=== PATIENT | female | born 1995 | race African-American/Black ===

== ENCOUNTER 2017-02-13 19:59 | Emergency (ER) | payer SELFPAY ==
[~2017-02-13] VITALS: Ht 170.2 cm; Wt 48.0 kg
[~2017-02-13 19:59] MED LIST: ALPR.25 PO
[2017-02-13 20:02] VITALS: BP 138/81; PULSE 84; RESP 16; TEMP 97.8; O2SAT 100
[2017-02-13] MEDS ORDERED: SODIUM CHLORIDE 0.9% FLUSH 10 ML FLUSH IV FLUSH PRN (20:30)
--- NOTE | 2017-02-13 20:41 | PD ---
HPI Chief Complaint: Cold / Flu Symptoms Time Seen by Provider: 20:09 Travel History International Travel<30 days: No Contact w/Intl Traveler<30days: No Traveled to known affect area: No History of Present Illness HPI Patient comes in complaining of not feeling well over the past 2 weeks. Patient states she's had intermittent hot flashes and cold chills. Patient states over the past week she's had sinus congestion. Reports associated nausea with eating. Denies any vomiting. Denies any chest pain, shortness breath, cough, headache, loss change in bowel or bladder, fevers, abdominal pain , back pain, headaches, sore throat, weight loss, or neck pain. Patient reports she has irregular periods but has never seen anyone for this. Patient states that she started her period today which was normal other than having worse cramping pain than normal that made her feel dizzy. Patient denies doing anything for this prior to coming emergency department. Denies anything making symptoms better or worse. Patient states she is sexually active and denies any vaginal discharge prior to starting her menstrual cycle. [facility] Past Medical History Medical History: Denies Significant Hx ?: Unknown LMP: 01/16/17 : 0 Past Surgical History Surgical History: No Previous Surgery Social History Alcohol Use: Yes ("VERY RARELY") Tobacco Use: No Substance Use: Yes (RARELY WEED) Allergies-Medications (Allergen,Severity, Reaction): Coded Allergies: No Known Allergies (Unverified Adverse Reaction, Unknown, 02/13/17) Reported Meds & Prescriptions Reported Meds & Active Scripts Active No Active Prescriptions or Reported Medications Review of Systems Except as stated in HPI: all other systems reviewed are Neg Physical Exam Narrative GENERAL: Well-developed, well nourished, in no acute distress, and non-ill appearing. SKIN: Focused skin assessment warm and dry. HEAD: Atraumatic. Normocephalic. EYES: Pupils equal and round. EOMI. No scleral icterus. No injection or drainage. ENT: No nasal bleeding or discharge. Mucous membranes pink and moist. Tympanic membranes pearly cagle bilaterally. Posterior pharynx nonerythematous without exudate. Uvula is midline. NECK: Trachea midline. No cervical lymphadenopathy. Supple. No nuclear rigidity. CARDIOVASCULAR: Regular rate and rhythm. No murmur appreciated. RESPIRATORY: No accessory muscle use. No respiratory distress. Clear to auscultation. Breath sounds equal bilaterally. GASTROINTESTINAL: Abdomen soft, non-tender, nondistended, and no guarding. Hepatic and splenic margins not palpable. Normal bowel sounds 4. No pulsatile mass. GENITOURINARY: Normal external genitalia without lesions or erythema. Vaginal vault with blood, but not any other drainage or clots. Cervical os was closed with scant bloody drainage. No cervical motion tenderness. Uterus nontender and nonenlarged. Bilateral adnexa nontender without masses. Exam was performed presence of senior staff specialized employment Susanne at all times. MUSCULOSKELETAL: No obvious deformities. No clubbing. No cyanosis. No edema. Full range of motion. NEUROLOGICAL: Awake and alert. No obvious cranial nerve deficits. Motor grossly within normal limits. Normal speech. PSYCHIATRIC: Appropriate mood and affect; insight and judgment normal. Data Data Last Documented VS Vital Signs Date Time Temp Pulse Resp B/P (MAP) Pulse Ox O2 Delivery O2 Flow Rate FiO2 02/13/17 22:05 02/13/17 21:25 88 14 02/13/17 20:02 97.8 100 Room Air Orders Orders Complete Blood Count With Diff (02/13/17 20:24) Comprehensive Metabolic Panel (02/13/17 20:24) Lipase (02/13/17 20:24) Urinalysis - C+S If Indicated (02/13/17 20:24) Iv Access Insert/Monitor (02/13/17 20:24) Ecg Monitoring (02/13/17 20:24) Oximetry (02/13/17 20:24) Sodium Chloride 0.9% Flush (Ns Flush) (02/13/17 20:30) Ed Urine Pregnancytest Poc (02/13/17 20:24) Orthostatic Vital Signs (02/13/17 20:24) Influenzae A/B Antigen (02/13/17 20:24) Urine Culture (02/13/17 20:34) Gc And Chlamydia Pcr (02/13/17 21:20) Wet Prep Profile (02/13/17 21:20) Ed Discharge Order (02/13/17 21:58) Labs Laboratory Tests Test 02/13/17 20:34 02/13/17 21:30 White Blood Count 12.7 TH/MM3 Red Blood Count 4.56 MIL/MM3 Hemoglobin 12.8 GM/DL Hematocrit 38.5 % Mean Corpuscular Volume 84.4 FL Mean Corpuscular Hemoglobin 28.0 PG Mean Corpuscular Hemoglobin Concent 33.2 % Red Cell Distribution Width 13.4 % Platelet Count 257 TH/MM3 Mean Platelet Volume 8.2 FL Neutrophils (%) (Auto) 80.9 % Lymphocytes (%) (Auto) 13.1 % Monocytes (%) (Auto) 5.4 % Eosinophils (%) (Auto) 0.2 % Basophils (%) (Auto) 0.4 % Neutrophils # (Auto) 10.2 TH/MM3 Lymphocytes # (Auto) 1.7 TH/MM3 Monocytes # (Auto) 0.7 TH/MM3 Eosinophils # (Auto) 0.0 TH/MM3 Basophils # (Auto) 0.0 TH/MM3 CBC Comment DIFF FINAL Differential Comment Urine Color DARK-RED Urine Turbidity CLOUDY Urine pH 6.5 Urine Specific Anthon 1.024 Urine Protein 300 mg/dL Urine Glucose (UA) NEG mg/dL Urine Ketones 40 mg/dL Urine Occult Blood LARGE Urine Nitrite NEG Urine Bilirubin NEG Urine Urobilinogen LESS THAN 2.0 MG/DL Urine Leukocyte Esterase LARGE Urine RBC /hpf Urine WBC 33 /hpf Urine Squamous Epithelial Cells 1 /hpf Urine Bacteria FEW /hpf Microscopic Urinalysis Comment CULTURE INDICATED Blood Urea Nitrogen 11 MG/DL Creatinine 0.72 MG/DL Random Glucose 96 MG/DL Total Protein 9.4 GM/DL Albumin 4.4 GM/DL Calcium Level 8.8 MG/DL Alkaline Phosphatase 72 U/L Aspartate Amino Transf (AST/SGOT) 25 U/L Alanine Aminotransferase (ALT/SGPT) 26 U/L Total Bilirubin 0.2 MG/DL Sodium Level 134 MEQ/L Potassium Level 3.4 MEQ/L Chloride Level 100 MEQ/L Carbon Dioxide Level 23.5 MEQ/L Anion Gap 11 MEQ/L Estimat Glomerular Filtration Rate 123 ML/MIN Lipase 103 U/L Clue Cells (Wet Prep) NONE SEEN Vaginal Trichomonas (Wet Prep) NONE SEEN Vaginal Yeast (Wet Prep) NONE SEEN MDM Medical Decision Making Medical Screen Exam Complete: Yes Emergency Medical Condition: Yes Differential Diagnosis Influenza, metabolic disturbance, UTI, influenza, sinusitis, allergies, STD, PID , cervicitis, anemia, dysmenorrhea, irregular menstrual cycle, other Narrative Course Patient presented with vaginal bleeding and test is negative. There is no evidence to suggest ectopic nor retained products of conception at this time. Patient is stable and no clinical evidence of anemia. I suspect this may be due to regular/irregular menses or DUB. Patient was instructed to follow up with primary care provider or [facility]. She was given warnings to return if bleeding worsened, felt faint or passed out. The patient agreed with plan. Patient in no obvious distress upon re-evaluation. All pertinent laboratory result(s) discussed with patient. Discussed patient with Dr. Coulter prior to discharge, who is in agreement with plan of care and disposition. Any questions /concerns in reference to patient diagnosis/condition discussed and clarified prior to patient's discharge. Reinforced sheer importance of close follow up with patient's primary physician or primary care clinic. Instructed patient to return to ED immediately, if symptoms return/worsen. Patient showed understanding of above instructions. Further instructions and recommendations were detailed in discharge paperwork. Patient ambulated without difficulty out of ED at discharge. Diagnosis Primary Impression: Sinus congestion Additional Impression: Menstrual cramps Referrals: [facility] Patient Instructions: General Instructions Additional Instructions: Follow-up with your primary care physician in 3-5 days for reevaluation. Use [id number] allergy medication and decongestants for symptomatic relief. Use [id number] Tylenol and/or ibuprofen as needed for pain and/or fevers. Follow instructions on the packaging. Implanon caffeinated nonalcoholic fluids. Return to the emergency department if symptoms get worse. Scripts No Active Prescriptions or Reported Meds Disposition: 01 DISCHARGE HOME Condition: Stable Mc Graham Feb 13, 2017 20:41
[2017-02-13 20:51] LABS: AUTOMATED NEUTROPHIL # 10.2 TH/MM3 (1.8-7.7); BASOPHIL % 0.4 % (0.0-2.0); EOSINOPHIL % 0.2 % (0.0-4.0); HEMATOCRIT 38.5 % (35.0-46.0); HEMO FLAGS DIFF FINAL; LYMPH % 13.1 % (9.0-44.0); LYMPHOCYTE # 1.7 TH/MM3 (1.0-4.8); MEAN CELL VOLUME 84.4 FL (80.0-100.0); MEAN CORPUSCULAR HGB CONC 33.2 % (32.0-36.0); MONO % 5.4 % (0.0-8.0); NEUT % 80.9 % (16.0-70.0); PLATELET COUNT 257 TH/MM3 (150-450); RED BLOOD COUNT 4.56 MIL/MM3 (4.00-5.30); RED CELL DISTRIBUTION WIDTH 13.4 % (11.6-17.2); WHITE BLOOD COUNT 12.7 TH/MM3 (4.0-11.0)
[2017-02-13 20:58] LABS: BACTERIA, URINE FEW /hpf; BLOOD, URINE LARGE (NEG); COMMENT (UR) CULTURE INDICATED; CULTURE IF INDICATED CULTURE INDICATED; GLUCOSE,URINE NEG (NEG); KETONE, URINE 40 mg/dL (NEG); NITRITE,URINE NEG (NEG); PH, URINE 6.5 (5.0-8.5); SQUAMOUS EPITHELIAL CELL URINE 1 /hpf (0-5); URINE COLOR DARK-RED (YELLW/STRAW)
[2017-02-13 21:11] LABS: ALT (GPT) 26 U/L (10-53); ANION GAP 11 MEQ/L (5-15); AST (GOT) 25 U/L (15-37); BICARBONATE 23.5 MEQ/L (21.0-32.0); BLOOD UREA NITROGEN 11 MG/DL (7-18); CHLORIDE 100 MEQ/L (98-107); GLOMERULAR FILTRATION RATE 123 ML/MIN (>89); POTASSIUM 3.4 MEQ/L (3.5-5.1); SODIUM (NA) 134 MEQ/L (136-145)
[2017-02-13 21:14] LABS: ALKALINE PHOSPHATASE 72 U/L (45-117); TOTAL BILIRUBIN ADULT 0.2 MG/DL (0.2-1.0)
[2017-02-13 21:24] VITALS: BP_SYST 122; BP_SYST 127; BP_DIAS 63; BP_DIAS 70; RESP 14
[2017-02-13 21:25] VITALS: BP 127/72; RESP 14
[2017-02-14 00:01] LABS: CHLAMYDIA PCR NOT DETECTED (NOT DETECT); NEISSERIA PCR NOT DETECTED (NOT DETECT)
== END 2017-02-13 22:15 | disposition home or self-care (01) ==
LOC: NEPD 19:59
DX: R09.81 Nasal congestion (principal); R10.9 Unspecified abdominal pain; R11.0 Nausea; R42 Dizziness and giddiness; B96.89 Other specified bacterial agents as the cause of diseases classified elsewhere
CPT/HCPCS: 80053; 81001; 83690; 84703; 85025; 87086; 87210; 87491; 87591; 87804; 99283